=== PATIENT | male | born 1990 | race African-American/Black ===

== ENCOUNTER 2017-02-06 17:44 | Emergency (ER) | payer SELFPAY ==
[~2017-02-06] VITALS: Ht 185.4 cm; Wt 80.8 kg
[~2017-02-06 17:44] MED LIST: AUGMENTIN875 MG PO; BACTRIM,SEPT1 TABLET PO; NAPROSYN500 MG PO; NORCO 5/3251 TABLET PO; PEN-VEE K,VEET500 MG PO; ULTRAM50 MG PO
[2017-02-06 18:30] VITALS: BP 103/65
== END 2017-02-06 20:50 | disposition left against medical advice (07) ==
LOC: EME 17:44
DX: H57.8 Other specified disorders of eye and adnexa (principal); Z53.21 Procedure and treatment not carried out due to patient leaving prior to being seen by health care provider

== ENCOUNTER 2017-11-02 08:50 | Emergency (ER) | payer OTHER ==
[~2017-11-02] VITALS: Ht 182.9 cm; Wt 78.4 kg
[2017-11-02 11:28] VITALS: BP 140/84
== END 2017-11-02 11:29 | disposition home or self-care (01) ==
LOC: EME 08:50
DX: S00.83XA Contusion of other part of head, initial encounter (principal); V47.5XXA Car driver injured in collision with fixed or stationary object in traffic accident, initial encounter; K02.9 Dental caries, unspecified; Z87.891 Personal history of nicotine dependence
CPT/HCPCS: 70450; 70486; 99281; 99284